=== PATIENT | male | born 1990 | race Caucasian/White ===

== ENCOUNTER 2016-08-10 18:37 | Emergency (ER) | payer SELFPAY ==
[2016-08-10 19:02] VITALS: BP 131/72; PULSE 70; TEMP 98.1; BMI 24.0
--- NOTE | 2016-08-10 19:22 | PDOC ---
History of Present Illness - General Chief Complaint: Chest Pain Stated Complaint: CHEST PAIN Time Seen by Provider: 08/10/16 18:56 - History of Present Illness Initial Comments: 08/10/16 19:22 Patient is a 26 year old male with significant medical hx of hyperlipidemia ( untreated) who is presenting to the ED with chest pain since yesterday. Patient reports having left sided, non-radiating chest pain since yesterday that kept him up throughout the night. He complains of pain when he bends down to pick something up and when he twists his torso. The patient denies recent injury. The patient denies fever, chills. diaphoresis, shortness of breath and pain with swallowing. Social Hx: Patient works at a construction site. (Brielle Carl) Past History - Past Medical History Hypercholesterolemia: Yes - Psycho/Social/Smoking Cessation Hx Anxiety: No Suicidal Ideation: No Smoking History: Never smoked Have you smoked in the past 12 months: No Information on smoking cessation initiated: No Hx Alcohol Use: No Drug/Substance Use Hx: No Substance Use Type: None - Past Medical History Allergies/Adverse Reactions: Allergies Allergy/AdvReac Type Severity Reaction Status Date / Time No Known Allergies Allergy Verified 08/10/16 18:44 Home Medications: Ambulatory Orders NK [No Known Home Medication] 08/10/16 Review of Systems - Review of Systems Comments:: 08/10/16 19:23 GENERAL/CONSTITUTIONAL: No fever or chills. No weakness. HEAD, EYES, EARS, NOSE AND THROAT: No change in vision. No ear pain or discharge. No sore throat. CARDIOVASCULAR: Chest pain. No shortness of breath. RESPIRATORY: No cough, wheezing, or hemoptysis. GASTROINTESTINAL: No nausea, vomiting, diarrhea or constipation. GENITOURINARY: No dysuria, frequency, or change in urination. MUSCULOSKELETAL: No joint or muscle swelling or pain. No neck or back pain. SKIN: No rash NEUROLOGIC: No headache, vertigo, loss of consciousness, or change in strength/ sensation. (Brielle Carl) *Physical Exam - Vital Signs Last Vital Signs Temp Pulse Resp BP Pulse Ox 98.1 F 70 20 131/72 100 08/10/16 18:38 08/10/16 18:38 08/10/16 18:38 08/10/16 18:38 08/10/16 18:38 - Physical Exam Comments: 08/10/16 19:24 GENERAL: Awake, alert, and fully oriented, in no acute distress HEAD: No signs of trauma EYES: PERRLA, EOMI, sclera anicteric, conjunctiva clear ENT: Auricles normal inspection, hearing grossly normal, nares patent. Erythematous oropharynx with small, white plaque to the right. Moist mucosa NECK: Normal ROM, supple, no lymphadenopathy, JVD, or masses LUNGS: Breath sounds equal, clear to auscultation bilaterally. No wheezes, and no crackles HEART: Regular rate and rhythm, normal S1 and S2, no murmurs, rubs or gallops ABDOMEN: Soft, nontender, normoactive bowel sounds. No guarding, no rebound. No masses EXTREMITIES: Normal range of motion, no edema. No clubbing or cyanosis. No cords, erythema, or tenderness MUSCULOSKELETAL: Point tenderness to palpation of the left sixth and seventh intercostal space left mid clavicular line. NEUROLOGICAL: Cranial nerves II through XII grossly intact. Normal speech, normal gait SKIN: Warm, Dry, normal turgor, no rashes or lesions noted. ENDOCRINE: No increased thirst. No abnormal weight change. HEMATOLOGIC/LYMPHATIC: No anemia, easy bleeding, or history of blood clots. ALLERGIC/IMMUNOLOGIC: No hives or skin allergy. (Brielle Carl) Heart Score/ECG Review #1 08/10/16 20:24 Poor data quality, interpretation may be adversely affected Normal sinus rhythm at 69 bpm Normal ECG (Brielle Carl) - ADDITIONAL ORDERS Additional order review: 08/10/16 19:15 Group A Strep Rapid Antigen - Final Throat NEGATIVE FOR THE ANTIGEN OF BETA HEMOLYTIC STREP GROUP A - RADIOLOGY Radiology Studies Ordered: Category Date Time Status CHEST PA & LAT [RAD] Stat Radiology 08/10/16 19:24 Taken - Medications Given in the ED: ED Medications Discontinued Medications Generic Name Dose Route Start Last Admin Trade Name Freq PRN Reason Stop Dose Admin Ketorolac Tromethamine 60 mg 08/10/16 19:55 08/10/16 20:22 Toradol Injection - IM 08/10/16 19:56 60 mg ONCE ONE Administration Progress Note - Progress Note Progress Note: Documentation has been prepared under my direction and personally reviewed by me in its entirety. I attest that this documented accurately reflects all work, treatment, procedures and medical decision making performed by me. 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 He denies other symptoms including trauma/overuse and also including fevers/chills/ sore throat/generalized myalgias. Exam notable for normal vital signs with excellent oxygenation on room air; pharynx is erythematous with 1 tiny exudative patch on oropharynx; lungs are clear; chest wall shows point tenderness midclavicular lines 6/7 interspace on the left side. Twelve-lead electrocardiogram performed: normal sinus rhythm at 69 bpm; no evidence of ST or T-wave abnormalities. Edgar, intervals and wave forms are all normal Chest x-ray shows no acute abnormality. Quick strep/throat culture performed because of patient's pharyngeal erythema with tiny exudative area. Quick strep negative Clinical presentation most consistent with localized muscle strain; he may also have viral syndrome judging from the inflammation of his pharynx. Results of the tests discussed with the patient through interpretation by [employer] system. All patient's questions were answered. Patient agreed to Toradol 60 mg IM for anti-inflammatory/analgesia effects. He will rest and drink plenty of fluids. No work for the next 3 days with work documentation given to the patient. He will return to the ER if he has worsening pain or has high fever/shortness of breath. The patient stated through spanish interpreter that he does have a general medical doctor with whom he will follow up within the next week. (Jocy Coburn) *DC/Admit/Observation/Transfer Diagnosis at time of Disposition: Chest wall muscle strain Qualifiers: Encounter type: initial encounter Qualified Code(s): S29.011A - Strain of muscle and tendon of front wall of thorax, initial encounter - Discharge Dispostion Disposition: HOME Condition at time of disposition: Stable - Patient Instructions Printed Discharge Instructions: DI for Atypical Chest Pain Additional Instructions: avoid strenuous activity involving upper body for the next week motrin/aleve/tylenol as needed for pain no work until Aug 14 return to ER if you have more severe pain or shortness of breath followup with your doctor within 1-2 weeks Print Language: [place] - Post Discharge Activity Work/School Note: Back to Work - Attestations Scribe Attestion: 08/10/16 19:26 Documentation prepared by Brielle Carl, acting as medical billing supervisor for Jocy Coburn MD. (Siddhartha,Brielle)
[2016-08-10] MEDS ORDERED: KETOROLAC TROMETHAMINE 60 MG/2 ML VIAL IM ONE (19:55)
[2016-08-10] MEDS ORDERED: KETOROLAC TROMETHAMINE 60 MG/2 ML VIAL ONE (20:11)
--- NOTE | 2016-08-12 10:18 | EKG ---
Test Reason : Blood Pressure : / mmHG Vent. Rate : 069 BPM Atrial Rate : 069 BPM P-R Int : 152 ms QRS Dur : 090 ms QT Int : 366 ms P-R-T Axes : 076 083 064 degrees QTc Int : 392 ms POOR DATA QUALITY, INTERPRETATION MAY BE ADVERSELY AFFECTED SINUS RHYTHM RSR' OR QR PATTERN IN V1 SUGGESTS RIGHT VENTRICULAR CONDUCTION DELAY NORMAL ECG NO PREVIOUS ECGS AVAILABLE Confirmed by ULICES HOLLINGSWORTH, TEAGAN ([id number]) on 08/12/2016 10:17:39 AM Referred By: PARDEEP Confirmed By:TEAGAN ELENA MD
== END 2016-08-10 20:28 | disposition home or self-care (01) ==
LOC: FER 18:37
PROC: 3E0233Z Introduction of Anti-inflammatory into Muscle, Percutaneous Approach (ICD-10-PCS; principal; 2016-08-10)
DX: S29.011A Strain of muscle and tendon of front wall of thorax, initial encounter (principal); X58.XXXA Exposure to other specified factors, initial encounter; Y93.9 Activity, unspecified; Y92.9 Unspecified place or not applicable
CPT/HCPCS: 71020-TC; 87070; 87430; 93005; 93010; 99282-25